=== PATIENT | female | born 1955 | race Hispanic/Latino ===

== ENCOUNTER → 2018-02-19 | Outpatient (CLI) | payer OTHER | END | disposition home or self-care (01) | LOC: RAH 08:14 | PROVIDERS: ATTEND Family Medicine | DX: Z12.31 Encounter for screening mammogram for malignant neoplasm of breast (principal) | CPT/HCPCS: 77067 ==

== ENCOUNTER → 2020-04-05 | Outpatient (CLI) | payer OTHER | END | disposition home or self-care (01) | LOC: RAH 08:19 | PROVIDERS: ATTEND Family Medicine | DX: Z12.31 Encounter for screening mammogram for malignant neoplasm of breast (principal) | CPT/HCPCS: 77067 ==

== ENCOUNTER 2021-03-10 03:40 | Emergency (ER) | payer OTHER ==
[~2021-03-10] VITALS: Ht 154.9 cm; Wt 70.3 kg
[2021-03-10] MEDS ORDERED: CYCLOBENZAPRINE HCL 10 MG TABLET PO ONE (04:00)
[2021-03-10] MEDS ORDERED: KETOROLAC 30MG VIAL (30MG/ML) IM ONE (04:00)
[2021-03-10] MEDS ORDERED: ORPH-43 PO (04:40)
[2021-03-10] MEDS ORDERED: MELO7.5T12 PO (04:40)
[2021-03-10 04:42] VITALS: BP 118/73
== END 2021-03-10 04:49 | disposition home or self-care (01) ==
LOC: EDH 03:40
DX: S40.011A Contusion of right shoulder, initial encounter (principal); I10 Essential (primary) hypertension; M81.0 Age-related osteoporosis without current pathological fracture; Z90.49 Acquired absence of other specified parts of digestive tract; Z79.1 Long term (current) use of non-steroidal anti-inflammatories (NSAID); V49.49XA Driver injured in collision with other motor vehicles in traffic accident, initial encounter; Y93.89 Activity, other specified; Y92.89 Other specified places as the place of occurrence of the external cause; Y99.8 Other external cause status
CPT/HCPCS: 73030; 96372; 99283; J1885

== ENCOUNTER → 2022-06-04 | Outpatient (CLI) | payer OTHER ==
[~2022-06-04] MED LIST: MELO7.5T12 PO; ORPH-43 PO
== END | disposition home or self-care (01) ==
LOC: RAH 10:04
PROVIDERS: ATTEND Family Medicine
DX: Z12.31 Encounter for screening mammogram for malignant neoplasm of breast (principal); N64.89 Other specified disorders of breast
CPT/HCPCS: 77067

== ENCOUNTER → 2024-06-09 | Outpatient (CLI) | payer OTHER ==
[~2024-06-09] MED LIST changes: -ORPH-43 PO; +ORPH100T4 PO
--- NOTE | 2024-06-09 11:07 | HMCIMG ---
Exam Type: MAMMO SCREENING BILATERAL Clinical Information: ANNUAL SCREENING Comparison: June 08, 2023 Technique: Mammogram with CAD was performed with CC and MLO projections. CAD shows no worrisome regions. FINDINGS: The breasts are heterogeneously dense, which may obscure small masses. No dominant mass or suspicious microcalcification identified. There is no nipple retraction or skin thickening. Benign-appearing calcifications are seen. CAD shows no worrisome regions. IMPRESSION: 1. No mammographic signs of malignancy. 2. Routine follow-up recommended. CATEGORY 2: BENIGN FINDINGS Note: A negative x-ray should not delay biopsy if a dominant or clinically suspicious mass is present, since 8-10% of cancers are not identified by mammography. Dense breasts may obscure an underlying neoplasm.
== END | disposition home or self-care (01) ==
LOC: RAH 10:32
PROVIDERS: ATTEND Family Medicine
DX: Z12.31 Encounter for screening mammogram for malignant neoplasm of breast (principal); R92.333 Mammographic heterogeneous density, bilateral breasts
CPT/HCPCS: 77067

== ENCOUNTER 2024-06-26 12:06 | Emergency (ER) | payer OTHER ==
[~2024-06-26] VITALS: Ht 152.4 cm; Wt 66.7 kg
--- NOTE | 2024-06-26 12:16 | ERN ---
ED Note History of Present Illness Stated Complaint: FEVER,COUGH,FATIGUE,MULTIPLE COMPLAINTS Time Seen by MD: 12:08 Dictation: PATIENT IS A 69-YEAR-OLD FEMALE COMING IN TODAY WITH FEVER CHILLS BODY ACHES WITH CONGESTED COUGH FOR THE LAST 7-10 DAYS. SHE STATES SHE HAS HAD HER INTERMITTENT FEVER. PATIENT CURRENTLY UNDER ANTIBIOTIC FEMUR THERAPY BY HER DOCTOR AFTER A PHONE CALL HOWEVER HAS NOT BEEN EXAMINED AND NO LABS DRAWN. CONGESTIVE COUGH NOTED IN TRIAGE. PATIENT DENIES CHEST PAIN BACK PAIN NO LOSS OF TASTE OR SMELL. Allergies: Coded Allergies: No Known Drug Allergies (Unverified Allergy, Unknown, 03/10/21) Home Meds Active Scripts Potassium Chloride (K-Dur/Klor-Con) 20 Meq Ertab, 1 TAB PO BIDMEALS for 10 Days, #10 TAB 0 Refills Prov:ZULAY GERONIMO NP 06/26/24 Benzonatate (Tessalon Perles) 100 Mg Cap, 200 MG PO TID for cough, #60 CAP 0 Refills Prov:ZULAY GERONIMO NP 06/26/24 Prednisone (Prednisone) 20 Mg Tablet, 1 TAB PO AD for 6 Days, #14 TAB 0 Refills TAKE 1 TAB BY MOUTH THREE TIMES PER DAY X3 DAYS, THEN TAKE 1 TAB BY MOUTH TWICE A DAY X2 DAYS, THEN TAKE 1 TAB BY MOUTH ONCE A DAY X1 DAY. TAKE WITH FOOD Prov:ZULAY GERONIMO NP 06/26/24 Albuterol Sulfate (Ventolin Hfa/Proventil Hfa/Proair Hfa) 90 Mcg Puff, 2 PUFF IH Q4H PRN for SHORTNESS OF BREATH/WHEEZING for 30 Days, #1 INH 0 Refills Prov:ZULAY GERONIMO NP 06/26/24 Orphenadrine Citrate (Orphenadrine Citrate) 100 Mg Tablet.er, 100 MG PO [id number], #20 TAB 0 Refills Prov:HANNAH COUCH MD 03/10/21 Meloxicam (Mobic) 7.5 Mg Tablet, 7.5 MG PO DAILY, #10 TAB 0 Refills Prov:HANNAH COUCH MD 03/10/21 Past Medical History Past Medical History: Hypertension Additional Past Medical Hx: OSTEOPOROSIS, RESTLESS LEG SYNDROME Surgical History: Hysterectomy, Cholecystectomy History: Not Applicable RN Note Reviewed/Agreed w/PFSH: Yes Review of System Dictation CONSTITUTIONAL: NEGATIVE EXCEPT FOR HPI FEVER CHILLS HEAD/FACE: NEGATIVE EXCEPT FOR HPI EENT: NEGATIVE EXCEPT FOR HPI RESPIRATORY: NEGATIVE EXCEPT FOR HPI CONGESTED COUGH MILD SOB GASTROINTESTINAL/ABDOMINAL: NEGATIVE EXCEPT FOR HPI GENITOURINARY: NEGATIVE EXCEPT FOR HPI MUSCULOSKELETAL: NEGATIVE EXCEPT FOR HPI INTEGUMENTARY: NEGATIVE EXCEPT FOR HPI NEUROLOGICAL/PSYCH: NEGATIVE EXCEPT FOR HPI HEMATOLOGIC/LYMPHATIC: NEGATIVE EXCEPT FOR HPI ALL SYSTEMS NEGATIVE, EXCEPT NOTED ABOVE. 13 POINT REVIEW OF SYSTEMS ASSESSED AND ALL NEGATIVE EXCEPT FOR ABOVE. Initial Vital Sign VS Vital Signs Date Time Temp Pulse Resp B/P (MAP) Pulse Ox O2 Delivery O2 Flow Rate FiO2 06/26/24 12:21 98.2 75 18 154/92 100 Room Air 0 06/26/24 13:28 21 Physical Exam Dictation VITAL SIGNS REVIEWED GENERAL APPEARANCE: ALERT, ORIENTED X 3, MODERATE ACUTE DISTRESS, WELL DEVELOPED, NOURISHED. HEAD AND FACE: NON-TRAUMATIC. EYES: PERRL, PINK CONJUNCTIVAS, EYELID NO TRAUMA, ANTERIOR CHAMBER WITH ARCUS SENILIS. EARS: PINNAS INTACT AND NO SIGNS OF TRAUMA OR ERYTHEMA EAR CANALS CLEAR AND NO DISCHARGE TM NO ERYTHEMA NOSE: NO DISCHARGE, NO BLEEDING. OROPHARYNX: MOUTH NORMAL, TONGUE PINK, PHARYNX CLEAR,NO ERYTHEMA, TONSILS NO EXUDATES, NO ABSCESSES NOTED, MUCOUS MEMBRANE MOIST NECK: SUPPLE, NON-TENDER, NO THYROMEGALY, NO MASSES, NO JVD, NO BRUITS BREAST:DEFERRED CHEST:NO TENDERNESS, NO CREPITUS, NO PARADOXICAL MOVEMENT, NO RETRACTIONS LUNGS:CLEAR, WELL-VENTILATED, SYMMETRIC, NO RALES, NO WHEEZING, NO RHONCHI, NO STRIDOR, GOOD BREATH SOUNDS BILATERALLY PERSISTENT CONGESTED COUGH NOTED NO TACHYPNEA NO RETRACTIONS HEART: REGULAR RATE, REGULAR RHYTHM, NO MURMUR, NO GALLOPS VASCULAR: NO PERIPHERAL EDEMA, ABDOMEN: SOFT, POSITIVE BOWEL SOUNDS, NONDISTENDED, NO GUARDING, NONTENDER, NO REBOUND, NO MASSES NO HEPATOMEGALY, NO SPLENOMEGALY, NO ALAN'S SIGN, NO HERNIAS. RECTAL: DEFERRED GENITAL: DEFERRED NEUROLOGICAL: NORMAL SPEECH, MOTOR FUNCTION INTACT, SENSORY FUNCTION INTACT MUSCULOSKELETAL: NECK NONTENDER, FULL RANGE OF MOTION, BACK NONTENDER, FULL RANGE OF MOTION, EXTREMITIES: NONTENDER, FULL RANGE OF MOTION SKIN: COLOR PINK, DRY, NO TURGOR, NO RASH, NO LACERATIONS, NO ABRASIONS, NO CONTUSIONS. LYMPHATIC: DEFERRED Results (Laboratory/Radiology) Laboratory/Radiology Laboratory Tests Test 06/26/24 12:28 06/26/24 13:40 SARS-CoV-2 Antigen (Rapid) PRESUMPTIVE NEGATIVE White Blood Count 4.9 K/uL (4.8-10.8) Red Blood Count 5.10 MIL/uL (4.00-5.50) Hemoglobin 15.7 g/dL (12.0-16.0) Hematocrit 44.4 % (36-48) Mean Corpuscular Volume 87.1 fL (79-99) Mean Corpuscular Hemoglobin 30.8 pg (27.0-33.0) Mean Corpuscular Hemoglobin Concent 35.4 g/dL (32.0-36.0) Red Cell Distribution Width 12.5 % (11.0-15.5) Platelet Count 254 K/uL (130-400) Mean Platelet Volume 10.0 fL (7.5-10.5) Immature Granulocyte % (Auto) 0.2 % (0-1) Neutrophils (%) (Auto) 34.4 % (40.0-77.0) L Lymphocytes (%) (Auto) 55.1 % (21.0-51.0) H Monocytes (%) (Auto) 8.5 % (3.0-13.0) Eosinophils (%) (Auto) 1.4 % (0.0-8.0) Basophils (%) (Auto) 0.4 % (0.0-5.0) Neutrophils # (Auto) 1.7 K/uL (1.8-7.7) L Lymphocytes # (Auto) 2.7 K/uL (1.0-4.8) Monocytes # (Auto) 0.4 K/uL (0.1-1.0) Eosinophils # (Auto) 0.07 K/uL (0.00-0.70) Basophils # (Auto) 0.02 K/uL (0.00-0.20) Absolute Immature Granulocyte (auto 0.01 K/uL (0-1) Nucleated Red Blood Cells 0.0 % (0.0-0.19) Sodium Level 142 mmol/L (136-145) Potassium Level 2.7 mmol/L (3.5-5.1) *L Chloride Level 102 mmol/L (101-111) Carbon Dioxide Level 30 mmol/L (21-32) Blood Urea Nitrogen 11 mg/dL (7-18) Creatinine 0.6 mg/dL (0.5-1.0) Glomerular Filtration Rate Calc 97 mL/min (>90) Random Glucose 101 mg/dL (70-105) Lactic Acid Level 1.9 mmol/L (0.8-2.5) Total Calcium 9.2 mg/dL (8.5-10.1) Troponin I High Sensitivity 14 ng/L (4-50) Exam Type: CHEST 1VW Clinical Information: SOB WITH CONGESTED COUGH TWO WEEKS Comparison: None Findings: The lungs are clear of infiltrates. The heart is normal in size. The bony and soft tissue structures of the chest are unremarkable. Impression: Clear lungs. Labs Reviewed?: Yes ED Course ED Course Orders Procedure Category Date Status Time Covid19 (Sars Antigen LAB 06/26/24 Complete Rapid) 12:13 Cbc With Differential LAB 06/26/24 Complete 12:13 Blood Cult INÉS 06/26/24 In Process 12:13 Troponin I High LAB 06/26/24 Complete Sensitivity 12:13 Lactic Acid LAB 06/26/24 Complete 12:13 Basic Metabolic Panel LAB 06/26/24 Complete 12:13 Chest 1vw RAD 06/26/24 Resulted 12:13 Albuterol 0.083% PHA 06/26/24 Complete 2.5mg/3ml (Proventil 12:30 Methylprednisolone PHA 06/26/24 Complete Succ 125mg (Solu-Medr 13:30 Potassium Bicarb/Cit PHA 06/26/24 Complete Ac 25meq (K-Lyte Ta 15:30 Current Medications Medications (Trade) Dose Ordered Sig/Abdon Route PRN Reason Start Time Stop Time Status Last Admin Dose Admin Albuterol Sulfate (Proventil 0.083% 2.5mg/3ml) 5 mg ONCE ONCE IH 06/26/24 12:30 06/26/24 12:31 DC 06/26/24 12:40 Methylprednisolone Sodium Succinate (Solu-medROL 125MG) 125 mg ONCE ONCE IVP 06/26/24 13:30 06/26/24 13:31 DC 06/26/24 13:35 Potassium Bicarbonate (K-Lyte Tablet Eff 25 Meq Tablet.eff) 25 meq ONCE ONCE PO 06/26/24 15:30 06/26/24 15:31 DC 06/26/24 15:30 Vital Signs Date Time Temp Pulse Resp B/P (MAP) Pulse Ox O2 Delivery O2 Flow Rate FiO2 06/26/24 15:10 97.9 77 18 149/72 99 Room Air* 0 21 06/26/24 13:28 98.4 76 18 137/77 100 Room Air* 0 21 06/26/24 12:53 79 18 06/26/24 12:21 98.2 75 18 154/92 100 Room Air 0 1530/SHE FEELS BETTER AFTER TREATMENT. DISCHARGED HOME AWARE THAT SHE HAS A VIRAL URI WITH COUGH WE WILL BE TREATED SYMPTOMATICALLY Medical Decision Making MDM MEDICAL DECISION-MAKING BASED ON BASIC LABS AND CHEST X-RAY. SARS COVID SWAB NEGATIVE CHEST X-RAY CLEAR COUGH IS IMPROVING AFTER TREATMENT. DX & DISP Disposition: Discharge Departure Impression: Primary Impression: Viral URI with cough Additional Impression: Hypokalemia Condition: Stable Scripts Potassium Chloride (K-Dur/Klor-Con) 20 Meq Ertab 1 TAB PO BIDMEALS for 10 Days, #10 TAB 0 Refills Prov: ZULAY GERONIMO NP 06/26/24 Benzonatate (Tessalon Perles) 100 Mg Cap 200 MG PO TID for cough, #60 CAP 0 Refills Prov: ZULAY GERONIMO NP 06/26/24 Prednisone (Prednisone) 20 Mg Tablet 1 TAB PO AD for 6 Days, #14 TAB 0 Refills TAKE 1 TAB BY MOUTH THREE TIMES PER DAY X3 DAYS, THEN TAKE 1 TAB BY MOUTH TWICE A DAY X2 DAYS, THEN TAKE 1 TAB BY MOUTH ONCE A DAY X1 DAY. TAKE WITH FOOD Prov: ZULAY GERONIMO NP 06/26/24 Albuterol Sulfate (Ventolin Hfa/Proventil Hfa/Proair Hfa) 90 Mcg Puff 2 PUFF IH Q4H PRN for SHORTNESS OF BREATH/WHEEZING for 30 Days, #1 INH 0 Refills Prov: ZULAY GERONIMO NP 06/26/24 Additional Instructions: Follow-up with primary care provider in 1 to 2 days. Take medications as directed here in the emergency room. Okay to continue home medications unless otherwise discussed during your visit in the emergency room today. Return to your nearest emergency room if symptoms worsen or if there is no improvement. Call 911 if you need immediate assistance. Take Tylenol or Motrin [id number] as needed and if no contraindications are present. Increase oral hydration. A wound culture or urine culture was ordered here in the emergency room department please follow-up with primary care provider and advise them to get repeat ports from our facility. If you had any Jaime wrap/splints that were applied here, please do not remove them until you see your primary care or specialty. Continue the antibiotics from your doctor until gone. Use albuterol inhaler every 4 hours while awake for the next three days. Take prednisone as directed with food. Take K-Dur as directed to replace her potassium as directed. See your primary care doctor for follow up in 1-2 days. Referrals: JULIO BYRD MD (PCP) Time of Disposition: 15:29 I have reviewed the case, and I agree with, Diagnosis and Plan I performed the substantive portion of the visit. I have reviewed and personally made and approve the management plan that is documented in the notes by myself or the CRISTHIAN. I acknowledge full responsibility for the patient's management plan. ZULAY GERONIMO NP Jun 26, 2024 12:16 ANGELA BENNETT MD Jun 26, 2024 19:16
[2024-06-26] MEDS: ALBUTEROL 0.083% 2.5 MG/3 ML INH IH ONE (12:40)
[2024-06-26 12:53] VITALS: PULSE 79; RESP 18
--- NOTE | 2024-06-26 13:00 | HMCIMG ---
Exam Type: CHEST 1VW Clinical Information: SOB WITH CONGESTED COUGH TWO WEEKS Comparison: None Findings: The lungs are clear of infiltrates. The heart is normal in size. The bony and soft tissue structures of the chest are unremarkable. Impression: Clear lungs.
[2024-06-26] MEDS: Solu-medROL 125MG VIAL IVP ONE (13:35)
[2024-06-26 14:02] LABS: BASOPHILS # (AUTO) 0.02 K/uL (0.00-0.20); BASOPHILS % (AUTO) 0.4 % (0.0-5.0); EOSINOPHILS # (AUTO) 0.07 K/uL (0.00-0.70); EOSINOPHILS % (AUTO) 1.4 % (0.0-8.0); HEMATOCRIT 44.4 % (36-48); IMMATURE GRANULOCYTE ABSOLUTE 0.01 K/uL (0-1); LYMPHOCYTES # (AUTO) 2.7 K/uL (1.0-4.8); LYMPHOCYTES % (AUTO) 55.1 % (21.0-51.0); MEAN CORPUSCULAR HEMOGLOBIN 30.8 pg (27.0-33.0); MEAN CORPUSCULAR HGB CONC 35.4 g/dL (32.0-36.0); MEAN CORPUSCULAR VOLUME 87.1 fL (79-99); MONOCYTES # (AUTO) 0.4 K/uL (0.1-1.0); MONOCYTES % (AUTO) 8.5 % (3.0-13.0); NEUTROPHILS # (AUTO) 1.7 K/uL (1.8-7.7); NEUTROPHILS % (AUTO) 34.4 % (40.0-77.0); PLATELET COUNT (AUTO) 254 K/uL (130-400); RED CELL DISTRIBUTION WIDTH 12.5 % (11.0-15.5); WHITE BLOOD COUNT (AUTO) 4.9 K/uL (4.8-10.8)
[2024-06-26 14:09] LABS: CREATININE 0.6 mg/dL (0.5-1.0)
[2024-06-26 14:19] LABS: POTASSIUM 2.7 mmol/L (3.5-5.1)
[2024-06-26 15:10] VITALS: BP 149/72; PULSE 77; RESP 18; TEMP 97.9; O2SAT 99
[2024-06-26] MEDS: PoTASSium BIcarbonate/CIT AC 25 MEQ TABLET.EFF PO ONE (15:30)
[2024-06-26] MEDS ORDERED: ALBUHFA IH (15:31)
[2024-06-26] MEDS ORDERED: PRED20TA3 PO (15:31)
[2024-06-26] MEDS ORDERED: POTA-192 PO (15:31)
[2024-06-26] MEDS ORDERED: BENZ-39 PO (15:31)
== END 2024-06-26 15:50 | disposition home or self-care (01) ==
LOC: EDH 12:06
DX: J06.9 Acute upper respiratory infection, unspecified (principal); E87.6 Hypokalemia; B97.89 Other viral agents as the cause of diseases classified elsewhere; I10 Essential (primary) hypertension; Z79.1 Long term (current) use of non-steroidal anti-inflammatories (NSAID); Z90.49 Acquired absence of other specified parts of digestive tract; Z90.710 Acquired absence of both cervix and uterus; Z20.822 Contact with and (suspected) exposure to COVID-19
CPT/HCPCS: 99284; 96374; 71045; 87426; 84484; 80048; 85025; 87040 ×2; 83605; 36415; 94640; J2919